=== PATIENT | female | born 1935 | race Caucasian/White ===

== ENCOUNTER 2019-12-08 14:38 | Inpatient (IN) ==
[2019-12-08 15:29] LABS: Bilirubin,Urine Negative (Negative); Blood, Urine Negative (Negative); Glucose,Urine (UA) Negative (Negative); Ketones,Urine 80 mg/dL (Negative); Mucus,Urine Occasional /LPF (Occasional); Nitrite,Urine Negative (Negative); Protein,Urine Negative; RBC,Urine 6 /HPF (0-4); Urine Appearance Slightly Hazy (Clear); Urine Specific Gravity 1.021 (1.001-1.035); Urine Urobilinogen < 2.0 EU/DL (0.2-1.0)
[2019-12-08 15:30] LABS: Urine Color Yellow (Yellow)
[2019-12-08 16:00] LABS: Basophils % 0.7 % (0.0-0.8); Hematocrit 42.2 VOL% (35.7-47.0); Hemoglobin 13.8 GM/DL (12.0-16.0); Immature Granulocytes % 1.7 %; Immature Granulocytes Absolute 0.07 #; Lymphocytes # 1.3 10*3/uL (1.4-4.0); Lymphocytes % 31.7 % (21.3-54.2); Mean Corpuscular HGB Conc 32.7 GM/DL (32-36); Mean Corpuscular Volume 87.9 FL (87-102); Mean Platelet Volume 11.7 FL (9.6-12.0); Monocytes % 13.2 % (1.7-12.7); Neutrophils % 52.7 % (38.7-73.9); Platelet Count 156 T/CUMM (130-400); Red Cell Distribution Width 13.3 % (9.3-17.3); White Blood Count 4.1 T/CUMM (4-12)
[2019-12-08 16:06] LABS: Alanine Aminotransferase 17 U/L (13-56); Albumin 3.1 G/DL (3.4-5.0); Alkaline Phosphatase 84 U/L (45-117); Aspartate Amino Transferase 36 U/L (0-37); Bilirubin,Total < 0.39 MG/DL (0.2-1.0); Blood Urea Nitrogen 10 MG/DL (7-18); Calcium 7.6 MG/DL (8.5-10.1); Estimated Glom Filtration Rate 81 ML/MIN; Ferritin 149.4 ng/ml (8-252); Glucose 53 MG/DL (74-106); Osmolality,Calculated 272.5 MOS/KG (273-304); Total Protein 5.5 G/DL (6.4-8.3)
[2019-12-08] MEDS ORDERED: ONDANSETRON 4 MG/2 ML VIAL IV PRN (16:53)
[2019-12-08] MEDS ORDERED: ZALEPLON 5 MG CAPSULE PO PRN (16:53)
[2019-12-08] MEDS ORDERED: TRIAMCINOLONE 0.025% CREAM 15 GM TUBE TOP PRN (16:53)
[2019-12-08] MEDS ORDERED: BENZTROPINE 2 MG/2 ML AMP IM PRN (16:53)
[2019-12-08] MEDS ORDERED: ACETAMINOPHEN 325 MG TABLET PO PRN ×2 (16:53)
[2019-12-08] MEDS: NYSTATIN 500,000 UNIT/5 ML UDCUP SWISH/SWAL SCH ×2 (18:57→21:01)
[2019-12-08] MEDS: SODIUM CHLORIDE 0.9% 1,000 ML IV SCH (18:57)
[2019-12-08] MEDS: ZINC OXIDE PASTE 113 GM TUBE TOP SCH (21:00)
[2019-12-08] MEDS: DOCUSATE SODIUM 100 MG CAPSULE PO SCH (21:00)
[2019-12-08] MEDS: CETIRIZINE 10 MG TABLET PO SCH (21:01)
[2019-12-08] MEDS: SIMVASTATIN 10 MG TABLET PO SCH (21:01)
[2019-12-08] MEDS: HALOPERIDOL 1 MG TABLET PO SCH ×2 (21:01→23:11)
[2019-12-08] MEDS: LACOSAMIDE 50 MG TABLET PO SCH (21:01)
[2019-12-08] MEDS ORDERED: INFLUENZA VIRUS VACCINE 0.5 ML SYRINGE IM ONE (21:17)
[2019-12-08] MEDS: AZITHROMYCIN 250 MG TABLET PO SCH (23:09)
[2019-12-09] MEDS: SODIUM CHLORIDE 0.9% 1,000 ML IV SCH ×3 (02:23→21:16)
[2019-12-09 06:22] LABS: Basophils % 0.6 % (0.0-0.8); Eosinophils % 0.3 % (0.00-10.9); Hematocrit 37.2 VOL% (35.7-47.0); Hemoglobin 12.3 GM/DL (12.0-16.0); Immature Granulocytes % 1.1 %; Immature Granulocytes Absolute 0.04 #; Lymphocytes # 1.5 10*3/uL (1.4-4.0); Lymphocytes % 42.8 % (21.3-54.2); Mean Corpuscular HGB Conc 33.1 GM/DL (32-36); Mean Corpuscular Volume 88.2 FL (87-102); Mean Platelet Volume 11.7 FL (9.6-12.0); Monocytes % 13.8 % (1.7-12.7); Neutrophils % 41.4 % (38.7-73.9); Platelet Count 142 T/CUMM (130-400); Red Blood Count 4.22 MC/CUMM (3.8-5.5); Red Cell Distribution Width 13.3 % (9.3-17.3); White Blood Count 3.6 T/CUMM (4-12)
[2019-12-09 06:45] LABS: Calcium 8.1 MG/DL (8.5-10.1); Osmolality,Calculated 268.8 MOS/KG (273-304)
[2019-12-09] MEDS: LEVOTHYROXINE 50 MCG TABLET PO SCH (06:50)
[2019-12-09] MEDS ORDERED: PANTOPRAZOLE 40 MG TABLET PO SCH (09:00)
[2019-12-09] MEDS: HALOPERIDOL 1 MG TABLET PO SCH ×2 (09:04→21:15)
[2019-12-09] MEDS: LACOSAMIDE 50 MG TABLET PO SCH ×2 (09:05→21:15)
[2019-12-09] MEDS: ZINC GLUCONATE 50 MG TABLET PO SCH ×2 (09:06→12:52)
[2019-12-09] MEDS: CHOLECALCIFEROL 1,000 UNIT TABLET PO SCH ×2 (09:06→12:52)
[2019-12-09] MEDS: NYSTATIN 500,000 UNIT/5 ML UDCUP SWISH/SWAL SCH ×5 (09:06→21:13)
[2019-12-09] MEDS: FOLIC ACID 0.4 MG TABLET PO SCH ×2 (09:06→12:51)
[2019-12-09] MEDS: ASCORBIC ACID 500 MG TABLET PO SCH ×2 (09:06→12:52)
[2019-12-09] MEDS: DOCUSATE SODIUM 100 MG CAPSULE PO SCH ×3 (09:06→21:13)
[2019-12-09] MEDS: PANTOPRAZOLE 40 MG TABLET PO SCH (09:06)
[2019-12-09] MEDS: DONEPEZIL 10 MG TABLET PO SCH ×2 (09:07→12:51)
[2019-12-09] MEDS: MULTIVITAMIN (CENTRUM) TABLET PO SCH ×2 (09:07→12:51)
[2019-12-09] MEDS: NON-FORMULARY MEDICATION (Lidocaine [Lidocaine Pain Relief] 4 % Adhesive Patch,Medicated) TOP SCH ×2 (09:07→12:43)
[2019-12-09] MEDS: SERTRALINE 50 MG TABLET PO SCH (09:07)
[2019-12-09] MEDS: ZINC OXIDE PASTE 113 GM TUBE TOP SCH ×2 (09:07→21:13)
[2019-12-09] MEDS: POTASSIUM CHLORIDE RIDER 10 MEQ in PREMIX 1 EACH IV PRN ×6 (09:09→23:08)
[2019-12-09 17:37] LABS: Albumin 2.9 G/DL (3.4-5.0); Bilirubin,Total 0.4 MG/DL (0.2-1.0); Calcium 7.9 MG/DL (8.5-10.1); Osmolality,Calculated 264.1 MOS/KG (273-304); Total Protein 5.5 G/DL (6.4-8.3)
[2019-12-09] MEDS ORDERED: DEXTROSE 50% 25 GM/50 ML VIAL IV PRN (20:21)
[2019-12-09] MEDS ORDERED: GLUCAGON 1 MG VIAL IM PRN (20:22)
[2019-12-09] MEDS: DEXTROSE 5% NACL 0.9% 1,000 ML IV SCH (21:13)
[2019-12-09] MEDS: CETIRIZINE 10 MG TABLET PO SCH (21:14)
[2019-12-09] MEDS: SIMVASTATIN 10 MG TABLET PO SCH (21:14)
[2019-12-09] MEDS: AZITHROMYCIN 250 MG TABLET PO SCH (21:14)
[2019-12-10] MEDS: POTASSIUM CHLORIDE RIDER 10 MEQ in PREMIX 1 EACH IV PRN ×2 (01:14→03:36)
[2019-12-10] MEDS: DEXTROSE 5% NACL 0.9% 1,000 ML IV SCH ×4 (06:25→22:55)
[2019-12-10] MEDS: LEVOTHYROXINE 50 MCG TABLET PO SCH (06:26)
[2019-12-10] MEDS: LACOSAMIDE 50 MG TABLET PO SCH ×2 (08:40→22:56)
[2019-12-10] MEDS: DONEPEZIL 10 MG TABLET PO SCH (08:40)
[2019-12-10] MEDS: SERTRALINE 50 MG TABLET PO SCH (08:40)
[2019-12-10] MEDS: HALOPERIDOL 1 MG TABLET PO SCH ×2 (08:40→22:40)
[2019-12-10] MEDS: NYSTATIN 500,000 UNIT/5 ML UDCUP SWISH/SWAL SCH ×5 (08:41→22:41)
[2019-12-10] MEDS: DOCUSATE SODIUM 100 MG CAPSULE PO SCH ×2 (08:41→22:39)
[2019-12-10] MEDS: MULTIVITAMIN (CENTRUM) TABLET PO SCH ×2 (08:41→10:18)
[2019-12-10] MEDS: FOLIC ACID 0.4 MG TABLET PO SCH ×2 (08:41→10:18)
[2019-12-10] MEDS: ZINC GLUCONATE 50 MG TABLET PO SCH ×2 (08:41→10:19)
[2019-12-10] MEDS: ZINC OXIDE PASTE 113 GM TUBE TOP SCH ×2 (08:42→22:42)
[2019-12-10] MEDS: PANTOPRAZOLE 40 MG TABLET PO SCH (08:42)
[2019-12-10] MEDS: ASCORBIC ACID 500 MG TABLET PO SCH ×2 (08:42→10:19)
[2019-12-10] MEDS: CHOLECALCIFEROL 1,000 UNIT TABLET PO SCH ×2 (08:42→10:19)
[2019-12-10] MEDS: NON-FORMULARY MEDICATION (Lidocaine [Lidocaine Pain Relief] 4 % Adhesive Patch,Medicated) TOP SCH (08:45)
[2019-12-10] MEDS ORDERED: SODIUM CHLORIDE 0.9% 500 ML IV ONE (21:21)
[2019-12-10] MEDS ORDERED: SODIUM CHLORIDE 0.9% 500 ML IV PRN (21:28)
[2019-12-10] MEDS: AZITHROMYCIN 250 MG TABLET PO SCH (22:39)
[2019-12-10] MEDS: CETIRIZINE 10 MG TABLET PO SCH (22:41)
[2019-12-10] MEDS: SIMVASTATIN 10 MG TABLET PO SCH (22:55)
[2019-12-11] MEDS ORDERED: SODIUM CHLORIDE 0.9% 500 ML IV ONE
[2019-12-11] MEDS: NYSTATIN 500,000 UNIT/5 ML UDCUP SWISH/SWAL SCH ×5 (01:14→20:15)
[2019-12-11] MEDS: AZITHROMYCIN 250 MG TABLET PO SCH ×2 (01:14→20:15)
[2019-12-11] MEDS: SIMVASTATIN 10 MG TABLET PO SCH ×2 (01:14→20:15)
[2019-12-11] MEDS: HALOPERIDOL 1 MG TABLET PO SCH ×3 (01:14→20:14)
[2019-12-11] MEDS: CETIRIZINE 10 MG TABLET PO SCH ×2 (01:14→20:15)
[2019-12-11] MEDS: DOCUSATE SODIUM 100 MG CAPSULE PO SCH ×3 (01:14→20:13)
[2019-12-11] MEDS ORDERED: LORazepam 2 MG/1 ML VIAL IV PRN (09:19)
[2019-12-11] MEDS: ASCORBIC ACID 500 MG TABLET PO SCH (09:32)
[2019-12-11] MEDS: SERTRALINE 50 MG TABLET PO SCH (09:33)
[2019-12-11] MEDS: CHOLECALCIFEROL 1,000 UNIT TABLET PO SCH (09:33)
[2019-12-11] MEDS: LEVOTHYROXINE 50 MCG TABLET PO SCH (09:33)
[2019-12-11] MEDS: FOLIC ACID 0.4 MG TABLET PO SCH (09:33)
[2019-12-11] MEDS: MULTIVITAMIN (CENTRUM) TABLET PO SCH (09:34)
[2019-12-11] MEDS: LACOSAMIDE 50 MG TABLET PO SCH ×2 (09:34→20:15)
[2019-12-11] MEDS: PANTOPRAZOLE 40 MG TABLET PO SCH (09:34)
[2019-12-11] MEDS: NON-FORMULARY MEDICATION (Lidocaine [Lidocaine Pain Relief] 4 % Adhesive Patch,Medicated) TOP SCH (09:34)
[2019-12-11] MEDS: DONEPEZIL 10 MG TABLET PO SCH (09:34)
[2019-12-11] MEDS: DEXTROSE 5% NACL 0.9% 1,000 ML IV SCH ×3 (09:35→20:16)
[2019-12-11] MEDS: ZINC OXIDE PASTE 113 GM TUBE TOP SCH ×2 (09:35→20:14)
[2019-12-11] MEDS: ZINC GLUCONATE 50 MG TABLET PO SCH (09:36)
[2019-12-11 17:38] LABS: Alanine Aminotransferase 16 U/L (13-56); Albumin 2.5 G/DL (3.4-5.0); Alkaline Phosphatase 72 U/L (45-117); Aspartate Amino Transferase 23 U/L (0-37); Bilirubin,Total < 0.39 MG/DL (0.2-1.0); Blood Urea Nitrogen 1 MG/DL (7-18); Calcium 7.5 MG/DL (8.5-10.1); Estimated Glom Filtration Rate 76 ML/MIN; Glucose 114 MG/DL (74-106); Osmolality,Calculated 271.7 MOS/KG (273-304); Total Protein 5.2 G/DL (6.4-8.3)
[2019-12-11] MEDS: POTASSIUM CHLORIDE RIDER 10 MEQ in PREMIX 1 EACH IV PRN ×4 (18:31→22:46)
[2019-12-12] MEDS: POTASSIUM CHLORIDE RIDER 10 MEQ in PREMIX 1 EACH IV PRN ×3 (00:11→11:20)
[2019-12-12] MEDS: DEXTROSE 5% NACL 0.9% 1,000 ML IV SCH ×3 (04:52→20:22)
[2019-12-12] MEDS: LEVOTHYROXINE 50 MCG TABLET PO SCH (06:01)
[2019-12-12] MEDS: SERTRALINE 50 MG TABLET PO SCH (09:52)
[2019-12-12] MEDS: LACOSAMIDE 50 MG TABLET PO SCH ×2 (09:52→20:05)
[2019-12-12] MEDS: CHOLECALCIFEROL 1,000 UNIT TABLET PO SCH (09:52)
[2019-12-12] MEDS: NYSTATIN 500,000 UNIT/5 ML UDCUP SWISH/SWAL SCH ×4 (09:52→20:22)
[2019-12-12] MEDS: ASCORBIC ACID 500 MG TABLET PO SCH (09:52)
[2019-12-12] MEDS: FOLIC ACID 0.4 MG TABLET PO SCH (09:52)
[2019-12-12] MEDS: MULTIVITAMIN (CENTRUM) TABLET PO SCH (09:52)
[2019-12-12] MEDS: ZINC OXIDE PASTE 113 GM TUBE TOP SCH ×2 (09:52→20:22)
[2019-12-12] MEDS: DOCUSATE SODIUM 100 MG CAPSULE PO SCH ×2 (09:52→20:05)
[2019-12-12] MEDS: DONEPEZIL 10 MG TABLET PO SCH (09:52)
[2019-12-12] MEDS: PANTOPRAZOLE 40 MG TABLET PO SCH (09:52)
[2019-12-12] MEDS: ZINC GLUCONATE 50 MG TABLET PO SCH (09:52)
[2019-12-12] MEDS: HALOPERIDOL 1 MG TABLET PO SCH ×2 (09:52→20:05)
[2019-12-12] MEDS: NON-FORMULARY MEDICATION (Lidocaine [Lidocaine Pain Relief] 4 % Adhesive Patch,Medicated) TOP SCH (09:59)
[2019-12-12] MEDS: AZITHROMYCIN 250 MG TABLET PO SCH (20:05)
[2019-12-12] MEDS: SIMVASTATIN 10 MG TABLET PO SCH (20:05)
[2019-12-12] MEDS: CETIRIZINE 10 MG TABLET PO SCH (20:05)
[2019-12-13 04:16] LABS: Basophils % 0.6 % (0.0-0.8); Eosinophils # 0.1 10*3/uL (0.0-0.87); Eosinophils % 0.9 % (0.00-10.9); Hematocrit 35.9 VOL% (35.7-47.0); Hemoglobin 11.9 GM/DL (12.0-16.0); Immature Granulocytes % 1.7 %; Immature Granulocytes Absolute 0.11 #; Lymphocytes # 1.5 10*3/uL (1.4-4.0); Lymphocytes % 23.5 % (21.3-54.2); Mean Corpuscular HGB Conc 33.1 GM/DL (32-36); Mean Corpuscular Volume 88.2 FL (87-102); Mean Platelet Volume 11.7 FL (9.6-12.0); Monocytes % 10.6 % (1.7-12.7); Neutrophils % 62.7 % (38.7-73.9); Platelet Count 134 T/CUMM (130-400); Red Blood Count 4.07 MC/CUMM (3.8-5.5); Red Cell Distribution Width 13.2 % (9.3-17.3); White Blood Count 6.3 T/CUMM (4-12)
[2019-12-13 04:46] LABS: Calcium 7.9 MG/DL (8.5-10.1); Osmolality,Calculated 271.7 MOS/KG (273-304)
[2019-12-13] MEDS: DEXTROSE 5% NACL 0.9% 1,000 ML IV SCH ×3 (05:01→23:45)
[2019-12-13] MEDS: POTASSIUM CHLORIDE RIDER 10 MEQ in PREMIX 1 EACH IV PRN ×3 (05:05→07:21)
[2019-12-13] MEDS: LEVOTHYROXINE 50 MCG TABLET PO SCH (06:01)
[2019-12-13 07:03] LABS: Anisocytosis 1+; Burr Cells Few; Platelet Estimate Adequate
[2019-12-13] MEDS ORDERED: MAGNESIUM SULF RIDER 2 GM in PREMIX 1 EACH IV ONE (09:10)
[2019-12-13] MEDS ORDERED: MAGNESIUM SULF RIDER 4 GM in PREMIX 1 EACH IV PRN (09:16)
[2019-12-13] MEDS: MULTIVITAMIN (CENTRUM) TABLET PO SCH (09:50)
[2019-12-13] MEDS: MAGNESIUM SULF RIDER 2 GM in PREMIX 1 EACH IV PRN ×2 (09:50→11:52)
[2019-12-13] MEDS: ASCORBIC ACID 500 MG TABLET PO SCH (09:50)
[2019-12-13] MEDS: ZINC OXIDE PASTE 113 GM TUBE TOP SCH ×2 (09:50→21:50)
[2019-12-13] MEDS: FOLIC ACID 0.4 MG TABLET PO SCH (09:50)
[2019-12-13] MEDS: PANTOPRAZOLE 40 MG TABLET PO SCH (09:50)
[2019-12-13] MEDS: ZINC GLUCONATE 50 MG TABLET PO SCH (09:50)
[2019-12-13] MEDS: DONEPEZIL 10 MG TABLET PO SCH (09:50)
[2019-12-13] MEDS: DOCUSATE SODIUM 100 MG CAPSULE PO SCH ×2 (09:50→21:50)
[2019-12-13] MEDS: CHOLECALCIFEROL 1,000 UNIT TABLET PO SCH (09:50)
[2019-12-13] MEDS: HALOPERIDOL 1 MG TABLET PO SCH ×2 (09:50→21:50)
[2019-12-13] MEDS: NYSTATIN 500,000 UNIT/5 ML UDCUP SWISH/SWAL SCH ×4 (09:50→21:50)
[2019-12-13] MEDS: SERTRALINE 50 MG TABLET PO SCH (09:50)
[2019-12-13] MEDS: LACOSAMIDE 50 MG TABLET PO SCH ×2 (09:50→21:50)
[2019-12-13] MEDS: NON-FORMULARY MEDICATION (Lidocaine [Lidocaine Pain Relief] 4 % Adhesive Patch,Medicated) TOP SCH (09:53)
[2019-12-13] MEDS: AZITHROMYCIN 250 MG TABLET PO SCH (21:50)
[2019-12-13] MEDS: SIMVASTATIN 10 MG TABLET PO SCH (21:50)
[2019-12-13] MEDS: CETIRIZINE 10 MG TABLET PO SCH (21:50)
[2019-12-14] MEDS: LEVOTHYROXINE 50 MCG TABLET PO SCH (06:05)
[2019-12-14 08:49] LABS: Basophils # 0.1 10*3/uL (0.0-0.2); Basophils % 0.7 % (0.0-0.8); Eosinophils # 0.1 10*3/uL (0.0-0.87); Eosinophils % 1.5 % (0.00-10.9); Hematocrit 36.9 VOL% (35.7-47.0); Hemoglobin 12.4 GM/DL (12.0-16.0); Immature Granulocytes % 1.9 %; Immature Granulocytes Absolute 0.15 #; Lymphocytes # 1.4 10*3/uL (1.4-4.0); Lymphocytes % 17.3 % (21.3-54.2); Mean Corpuscular HGB Conc 33.6 GM/DL (32-36); Mean Platelet Volume 11.7 FL (9.6-12.0); Monocytes % 9.8 % (1.7-12.7); Neutrophils % 68.8 % (38.7-73.9); Platelet Count 148 T/CUMM (130-400); Red Blood Count 4.24 MC/CUMM (3.8-5.5); Red Cell Distribution Width 13.5 % (9.3-17.3); White Blood Count 8.1 T/CUMM (4-12)
[2019-12-14] MEDS ORDERED: THIAMINE 100 MG TABLET PO SCH (09:00)
[2019-12-14] MEDS: SERTRALINE 50 MG TABLET PO SCH (09:03)
[2019-12-14] MEDS: HALOPERIDOL 1 MG TABLET PO SCH ×2 (09:04→20:59)
[2019-12-14] MEDS: CHOLECALCIFEROL 1,000 UNIT TABLET PO SCH (09:04)
[2019-12-14] MEDS: ASCORBIC ACID 500 MG TABLET PO SCH (09:04)
[2019-12-14] MEDS: DOCUSATE SODIUM 100 MG CAPSULE PO SCH ×2 (09:04→21:18)
[2019-12-14] MEDS: ZINC GLUCONATE 50 MG TABLET PO SCH (09:04)
[2019-12-14] MEDS: PANTOPRAZOLE 40 MG TABLET PO SCH (09:05)
[2019-12-14] MEDS: FOLIC ACID 0.4 MG TABLET PO SCH (09:05)
[2019-12-14] MEDS: MULTIVITAMIN (CENTRUM) TABLET PO SCH (09:05)
[2019-12-14] MEDS: NYSTATIN 500,000 UNIT/5 ML UDCUP SWISH/SWAL SCH ×5 (09:05→20:59)
[2019-12-14] MEDS: NON-FORMULARY MEDICATION (Lidocaine [Lidocaine Pain Relief] 4 % Adhesive Patch,Medicated) TOP SCH (09:05)
[2019-12-14] MEDS: DONEPEZIL 10 MG TABLET PO SCH (09:05)
[2019-12-14] MEDS: LACOSAMIDE 50 MG TABLET PO SCH ×2 (09:05→20:59)
[2019-12-14] MEDS: ZINC OXIDE PASTE 113 GM TUBE TOP SCH ×2 (09:06→20:59)
[2019-12-14] MEDS: DEXTROSE 5% NACL 0.9% 1,000 ML IV SCH ×3 (09:06→22:16)
[2019-12-14] MEDS: THIAMINE 100 MG TABLET PO SCH (10:43)
[2019-12-14] MEDS: CETIRIZINE 10 MG TABLET PO SCH (20:59)
[2019-12-14] MEDS: AZITHROMYCIN 250 MG TABLET PO SCH (20:59)
[2019-12-14] MEDS: SIMVASTATIN 10 MG TABLET PO SCH (20:59)
[2019-12-15] MEDS: DEXTROSE 5% NACL 0.9% 1,000 ML IV SCH ×4 (02:51→16:45)
[2019-12-15 04:03] LABS: Calcium 7.5 MG/DL (8.5-10.1); Osmolality,Calculated 272.7 MOS/KG (273-304)
[2019-12-15] MEDS: LEVOTHYROXINE 50 MCG TABLET PO SCH (06:45)
[2019-12-15] MEDS: CHOLECALCIFEROL 1,000 UNIT TABLET PO SCH (08:50)
[2019-12-15] MEDS: ZINC GLUCONATE 50 MG TABLET PO SCH (08:50)
[2019-12-15] MEDS: HALOPERIDOL 1 MG TABLET PO SCH ×2 (08:51→21:40)
[2019-12-15] MEDS: DOCUSATE SODIUM 100 MG CAPSULE PO SCH ×2 (08:51→21:39)
[2019-12-15] MEDS: DONEPEZIL 10 MG TABLET PO SCH (08:51)
[2019-12-15] MEDS: SERTRALINE 50 MG TABLET PO SCH (08:51)
[2019-12-15] MEDS: NYSTATIN 500,000 UNIT/5 ML UDCUP SWISH/SWAL SCH ×4 (08:52→21:40)
[2019-12-15] MEDS: LACOSAMIDE 50 MG TABLET PO SCH ×2 (08:52→21:40)
[2019-12-15] MEDS: ASCORBIC ACID 500 MG TABLET PO SCH (08:52)
[2019-12-15] MEDS: PANTOPRAZOLE 40 MG TABLET PO SCH (08:52)
[2019-12-15] MEDS: MULTIVITAMIN (CENTRUM) TABLET PO SCH (08:52)
[2019-12-15] MEDS: THIAMINE 100 MG TABLET PO SCH (08:52)
[2019-12-15] MEDS: FOLIC ACID 0.4 MG TABLET PO SCH (08:52)
[2019-12-15] MEDS: ZINC OXIDE PASTE 113 GM TUBE TOP SCH ×2 (08:53→21:40)
[2019-12-15] MEDS: NON-FORMULARY MEDICATION (Lidocaine [Lidocaine Pain Relief] 4 % Adhesive Patch,Medicated) TOP SCH (08:53)
[2019-12-15] MEDS: CETIRIZINE 10 MG TABLET PO SCH (21:40)
[2019-12-15] MEDS: SIMVASTATIN 10 MG TABLET PO SCH (21:40)
[2019-12-15] MEDS: AZITHROMYCIN 250 MG TABLET PO SCH (21:40)
[2019-12-16] MEDS: DEXTROSE 5% NACL 0.9% 1,000 ML IV SCH ×4 (00:06→21:01)
[2019-12-16 04:11] LABS: Calcium 7.6 MG/DL (8.5-10.1); Osmolality,Calculated 270.8 MOS/KG (273-304)
[2019-12-16] MEDS: MAGNESIUM SULF RIDER 2 GM in PREMIX 1 EACH IV PRN (05:26)
[2019-12-16] MEDS: LEVOTHYROXINE 50 MCG TABLET PO SCH (06:00)
[2019-12-16] MEDS: ASCORBIC ACID 500 MG TABLET PO SCH (09:19)
[2019-12-16] MEDS: FOLIC ACID 0.4 MG TABLET PO SCH (09:19)
[2019-12-16] MEDS: NYSTATIN 500,000 UNIT/5 ML UDCUP SWISH/SWAL SCH ×4 (09:19→20:00)
[2019-12-16] MEDS: DOCUSATE SODIUM 100 MG CAPSULE PO SCH ×2 (09:19→20:00)
[2019-12-16] MEDS: MULTIVITAMIN (CENTRUM) TABLET PO SCH (09:19)
[2019-12-16] MEDS: THIAMINE 100 MG TABLET PO SCH (09:19)
[2019-12-16] MEDS: PANTOPRAZOLE 40 MG TABLET PO SCH (09:19)
[2019-12-16] MEDS: ZINC GLUCONATE 50 MG TABLET PO SCH (09:19)
[2019-12-16] MEDS: SERTRALINE 50 MG TABLET PO SCH (09:19)
[2019-12-16] MEDS: ZINC OXIDE PASTE 113 GM TUBE TOP SCH ×2 (09:19→20:00)
[2019-12-16] MEDS: DONEPEZIL 10 MG TABLET PO SCH (09:19)
[2019-12-16] MEDS: HALOPERIDOL 1 MG TABLET PO SCH ×2 (09:19→20:00)
[2019-12-16] MEDS: LACOSAMIDE 50 MG TABLET PO SCH ×2 (09:19→20:00)
[2019-12-16] MEDS: CHOLECALCIFEROL 1,000 UNIT TABLET PO SCH (09:19)
[2019-12-16] MEDS: NON-FORMULARY MEDICATION (Lidocaine [Lidocaine Pain Relief] 4 % Adhesive Patch,Medicated) TOP SCH (09:44)
[2019-12-16] MEDS: CETIRIZINE 10 MG TABLET PO SCH (20:00)
[2019-12-16] MEDS: SIMVASTATIN 10 MG TABLET PO SCH (20:00)
[2019-12-17] MEDS: DEXTROSE 5% NACL 0.9% 1,000 ML IV SCH ×2 (05:24→10:25)
[2019-12-17 06:01] LABS: Osmolality,Calculated 263.4 MOS/KG (273-304)
[2019-12-17] MEDS: LEVOTHYROXINE 50 MCG TABLET PO SCH (06:30)
[2019-12-17] MEDS: DONEPEZIL 10 MG TABLET PO SCH (09:40)
[2019-12-17] MEDS: DOCUSATE SODIUM 100 MG CAPSULE PO SCH ×2 (09:40→20:05)
[2019-12-17] MEDS: FOLIC ACID 0.4 MG TABLET PO SCH (09:40)
[2019-12-17] MEDS: PANTOPRAZOLE 40 MG TABLET PO SCH (09:40)
[2019-12-17] MEDS: LACOSAMIDE 50 MG TABLET PO SCH ×2 (09:40→20:05)
[2019-12-17] MEDS: MULTIVITAMIN (CENTRUM) TABLET PO SCH (09:40)
[2019-12-17] MEDS: THIAMINE 100 MG TABLET PO SCH (09:40)
[2019-12-17] MEDS: ZINC GLUCONATE 50 MG TABLET PO SCH (09:40)
[2019-12-17] MEDS: HALOPERIDOL 1 MG TABLET PO SCH ×2 (09:40→20:05)
[2019-12-17] MEDS: NYSTATIN 500,000 UNIT/5 ML UDCUP SWISH/SWAL SCH ×4 (09:40→20:05)
[2019-12-17] MEDS: MEGESTROL 400 MG/10 ML UDCUP PO SCH ×2 (09:40→20:05)
[2019-12-17] MEDS: SERTRALINE 50 MG TABLET PO SCH (09:40)
[2019-12-17] MEDS: ASCORBIC ACID 500 MG TABLET PO SCH (09:40)
[2019-12-17] MEDS: CHOLECALCIFEROL 1,000 UNIT TABLET PO SCH (09:40)
[2019-12-17] MEDS: ZINC OXIDE PASTE 113 GM TUBE TOP SCH ×2 (09:40→20:05)
[2019-12-17] MEDS: POTASSIUM CHLORIDE RIDER 10 MEQ in PREMIX 1 EACH IV PRN ×3 (09:40→14:31)
[2019-12-17] MEDS: NON-FORMULARY MEDICATION (Lidocaine [Lidocaine Pain Relief] 4 % Adhesive Patch,Medicated) TOP SCH (10:03)
[2019-12-17] MEDS: SIMVASTATIN 10 MG TABLET PO SCH (20:05)
[2019-12-17] MEDS: CETIRIZINE 10 MG TABLET PO SCH (20:05)
[2019-12-18] MEDS: DEXTROSE 5% NACL 0.9% 1,000 ML IV SCH (05:35)
[2019-12-18] MEDS: LEVOTHYROXINE 50 MCG TABLET PO SCH (06:31)
[2019-12-18] MEDS: DONEPEZIL 10 MG TABLET PO SCH (08:02)
[2019-12-18] MEDS: MULTIVITAMIN (CENTRUM) TABLET PO SCH (08:02)
[2019-12-18] MEDS: ZINC OXIDE PASTE 113 GM TUBE TOP SCH (08:03)
[2019-12-18] MEDS: NYSTATIN 500,000 UNIT/5 ML UDCUP SWISH/SWAL SCH (08:03)
[2019-12-18] MEDS: DOCUSATE SODIUM 100 MG CAPSULE PO SCH (08:03)
[2019-12-18] MEDS: NON-FORMULARY MEDICATION (Lidocaine [Lidocaine Pain Relief] 4 % Adhesive Patch,Medicated) TOP SCH (08:03)
[2019-12-18] MEDS: HALOPERIDOL 1 MG TABLET PO SCH (08:03)
[2019-12-18] MEDS: FOLIC ACID 0.4 MG TABLET PO SCH (08:03)
[2019-12-18] MEDS: MEGESTROL 400 MG/10 ML UDCUP PO SCH (08:03)
[2019-12-18] MEDS: LACOSAMIDE 50 MG TABLET PO SCH (08:04)
[2019-12-18] MEDS: THIAMINE 100 MG TABLET PO SCH (08:04)
[2019-12-18] MEDS: ZINC GLUCONATE 50 MG TABLET PO SCH (08:04)
[2019-12-18] MEDS: SERTRALINE 50 MG TABLET PO SCH (08:04)
[2019-12-18] MEDS: ASCORBIC ACID 500 MG TABLET PO SCH (08:04)
[2019-12-18] MEDS: CHOLECALCIFEROL 1,000 UNIT TABLET PO SCH (08:04)
[2019-12-18] MEDS: PANTOPRAZOLE 40 MG TABLET PO SCH (08:04)
[2019-12-18 08:11] LABS: Calcium 8.1 MG/DL (8.5-10.1); Osmolality,Calculated 260.5 MOS/KG (273-304)
[2019-12-18 08:31] VITALS: BP 107/61
== END 2019-12-18 10:51 | disposition home or self-care (01) | DRG 56 ==
LOC: EDBD → EDUNIT# → N.ED 14:38 → N.EDINP 15:04 → N.2E 16:51
PROVIDERS: ADMIT Family Medicine; ATTEND Family Medicine

== ENCOUNTER 2020-02-22 13:08 | Inpatient (IN) ==
[2020-02-22] MEDS ORDERED: SODIUM CHLORIDE 0.9% 1,000 ML IV STA (13:21)
[2020-02-22 13:45] LABS: Basophils % 0.1 % (0.0-0.8); Hematocrit 41.7 VOL% (35.7-47.0); Hemoglobin 13.8 GM/DL (12.0-16.0); Immature Granulocytes % 4.6 %; Immature Granulocytes Absolute 1.55 #; Lymphocytes # 1.7 10*3/uL (1.4-4.0); Lymphocytes % 5.1 % (21.3-54.2); Mean Corpuscular HGB Conc 33.1 GM/DL (32-36); Mean Platelet Volume 10.8 FL (9.6-12.0); Monocytes % 4.5 % (1.7-12.7); Neutrophils % 85.7 % (38.7-73.9); Platelet Count 439 T/CUMM (130-400); Red Blood Count 4.74 MC/CUMM (3.8-5.5); Red Cell Distribution Width 14.1 % (9.3-17.3)
[2020-02-22] MEDS ORDERED: LEVOFLOXACIN INJ 500 MG in PREMIX 1 EACH IV STA (13:52)
[2020-02-22 14:11] LABS: Alanine Aminotransferase 37 U/L (13-56); Albumin 2.2 G/DL (3.4-5.0); Alkaline Phosphatase 68 U/L (45-117); Aspartate Amino Transferase 48 U/L (0-37); Bilirubin,Total < 0.39 MG/DL (0.2-1.0); Blood Urea Nitrogen 32 MG/DL (7-18); Calcium 7.2 MG/DL (8.5-10.1); Carbon Dioxide 20 MMOL/L (21-32); Estimated Glom Filtration Rate 24 ML/MIN; Glucose 102 MG/DL (74-106); Osmolality,Calculated 302.1 MOS/KG (273-304); Potassium 4.6 MMOL/L (3.5-5.1); Sodium 149 MMOL/L (136-145); Total Protein 5.2 G/DL (6.4-8.3)
[2020-02-22] MEDS ORDERED: VANCOMYCIN INJ 750 MG in SODIUM CHLORIDE 0.9% 250 ML IV STA (14:39)
[2020-02-22] MEDS ORDERED: ONDANSETRON 4 MG/2 ML VIAL IV PRN (14:53)
[2020-02-22 15:13] LABS: Bacteria,Urine Few /HPF (Few); Bilirubin,Urine Negative (Negative); Blood, Urine Large mg/dL (Negative); Glucose,Urine (UA) 50 mg/dL (Negative); Hyaline Casts,Urine 10 /LPF (0-3); Ketones,Urine 5 mg/dL (Negative); Mucus,Urine Occasional /LPF (Occasional); Nitrite,Urine Negative (Negative); Protein,Urine 30 MG/DL; RBC,Urine 271 /HPF (0-4); Squamous Epithelial Cell,Urine Occasional /HPF (0-10); Urine Appearance CLOUDY (Clear); Urine Color Amber (Yellow); Urine Specific Gravity 1.021 (1.001-1.035); Urine Urobilinogen < 2.0 EU/DL (0.2-1.0); WBC,Urine 11 /HPF (0-6)
[2020-02-22 16:12] LABS: Band Neutrophils 6 % (0-10); Lymphocytes 5 % (20-55); Platelet Estimate Increased; Segmented Neutrophils 81 % (50-85); Total Cells Counted 100
[2020-02-22] MEDS: ENOXAPARIN 30 MG/0.3 ML SYRINGE SUBCUT SCH (17:55)
[2020-02-22] MEDS: DEXTROSE 5% NACL 0.9% 1,000 ML IV SCH (17:55)
[2020-02-23] MEDS: DEXTROSE 5% NACL 0.9% 1,000 ML IV SCH ×4 (01:27→23:00)
[2020-02-23 07:39] LABS: Calcium 8.7 MG/DL (8.5-10.1); Osmolality,Calculated 319.2 MOS/KG (273-304); Potassium 4.2 MMOL/L (3.5-5.1)
[2020-02-23] MEDS: LEVOFLOXACIN INJ 250 MG in PREMIX 1 EACH IV SCH (09:32)
[2020-02-23] MEDS ORDERED: VANCOMYCIN INJ 750 MG in SODIUM CHLORIDE 0.9% 250 ML IV PRN (15:00)
[2020-02-23] MEDS ORDERED: SODIUM CHLORIDE 0.9% 500 ML IV ONE (16:20)
[2020-02-23] MEDS: MORPHINE 4 MG/1 ML VIAL IV PRN (16:38)
[2020-02-23] MEDS: ENOXAPARIN 30 MG/0.3 ML SYRINGE SUBCUT SCH (20:01)
[2020-02-23] MEDS ORDERED: ACETAMINOPHEN 650 MG SUPP RECTAL PRN (23:26)
[2020-02-24 01:59] LABS: Calcium 8.7 MG/DL (8.5-10.1); Osmolality,Calculated 327.5 MOS/KG (273-304); Potassium 3.8 MMOL/L (3.5-5.1)
[2020-02-24] MEDS: DEXTROSE 5% 1,000 ML IV SCH ×2 (02:45→14:12)
[2020-02-24 08:29] LABS: Calcium 8.4 MG/DL (8.5-10.1); Osmolality,Calculated 320.9 MOS/KG (273-304); Potassium 3.8 MMOL/L (3.5-5.1)
[2020-02-24] MEDS ORDERED: THIAMINE 100 MG TABLET PER TUBE SCH (09:00)
[2020-02-24] MEDS: LEVOFLOXACIN INJ 250 MG in PREMIX 1 EACH IV SCH (09:50)
[2020-02-24] MEDS: MORPHINE 4 MG/1 ML VIAL IV PRN ×3 (10:45→20:17)
[2020-02-24] MEDS ORDERED: VANCOMYCIN INJ 750 MG in SODIUM CHLORIDE 0.9% 250 ML IV ONE (11:00)
[2020-02-24] MEDS ORDERED: SODIUM CHLORIDE 0.45% 500 ML IV ONE (11:05)
[2020-02-24] MEDS: LORazepam 2 MG/1 ML VIAL IV PRN (23:53)
[2020-02-25] MEDS: MORPHINE 4 MG/1 ML VIAL IV PRN ×3 (08:34→20:30)
[2020-02-25] MEDS: LORazepam 2 MG/1 ML VIAL IV PRN ×2 (16:58→22:44)
[2020-02-26] MEDS: MORPHINE 4 MG/1 ML VIAL IV PRN ×4 (01:01→15:22)
[2020-02-26] MEDS: LORazepam 2 MG/1 ML VIAL IV PRN ×4 (03:26→18:00)
[2020-02-27] MEDS: MORPHINE 4 MG/1 ML VIAL IV PRN ×2 (08:33→16:24)
[2020-02-27] MEDS: LORazepam 2 MG/1 ML VIAL IV PRN ×2 (10:39→18:24)
[2020-02-28] MEDS: LORazepam 2 MG/1 ML VIAL IV PRN ×2 (09:01→18:05)
[2020-02-29] MEDS: LORazepam 2 MG/1 ML VIAL IV PRN ×2 (06:26→11:21)
[2020-02-29 08:29] VITALS: BP 47/20
[2020-02-29] MEDS ORDERED: LORazepam 2 MG/1 ML VIAL ONE (11:14)
== END 2020-02-29 13:12 | disposition expired | DRG 871 ==
LOC: EDBD → EDUNIT# → N.ED 13:08 → N.EDINP 14:53 → N.5E 15:48
PROVIDERS: ADMIT Family Medicine; ATTEND Family Medicine